=== PATIENT | male | born 1955 | race Caucasian/White ===

== ENCOUNTER → 2024-01-24 12:52 | Outpatient (REF) | payer MEDICARE, SELFPAY | LOC: DHCBC MAIN 12:52 | PROVIDERS: ATTENDING PHYSICIAN Internal Medicine Cardiovascular Disease; FAMILY PHYSICIAN Physician Assistant Medical | DX: I42.0 Dilated cardiomyopathy (principal) | CPT/HCPCS: 93306 ==

== ENCOUNTER → 2024-01-25 12:58 | Outpatient (REF) | payer MEDICARE, SELFPAY | LOC: RAD 12:58 | PROVIDERS: ATTENDING PHYSICIAN Nurse Practitioner Adult Health; FAMILY PHYSICIAN Physician Assistant Medical | DX: I27.20 Pulmonary hypertension, unspecified (principal) | CPT/HCPCS: 93970 ==

== ENCOUNTER → 2024-02-19 10:53 | Outpatient (REF) | payer MEDICARE, SELFPAY | LOC: RCS 10:53 | PROVIDERS: ATTENDING PHYSICIAN Internal Medicine Cardiovascular Disease; FAMILY PHYSICIAN Physician Assistant Medical | DX: I49.3 Ventricular premature depolarization (principal); R00.1 Bradycardia, unspecified; I42.0 Dilated cardiomyopathy | CPT/HCPCS: 93225; 93226 ==

== ENCOUNTER → 2025-01-23 08:05 | Outpatient (REF) | payer MEDICARE, SELFPAY | LOC: RCS 08:05 | PROVIDERS: ATTENDING PHYSICIAN Internal Medicine Cardiovascular Disease; FAMILY PHYSICIAN Physician Assistant Medical | DX: I49.3 Ventricular premature depolarization (principal); I34.1 Nonrheumatic mitral (valve) prolapse; I34.0 Nonrheumatic mitral (valve) insufficiency | CPT/HCPCS: 93306 ==